=== PATIENT | male | born 1995 | race Caucasian/White ===

== ENCOUNTER 2017-11-18 03:11 | Emergency (ER) | payer OTHER ==
[~2017-11-18 03:11] MED LIST: IBUP-1618 PO
[2017-11-18] MEDS ORDERED: PROPARACAINE 0.5% OP 15ML BTL ONE (03:27)
[2017-11-18] MEDS ORDERED: FLUORESCEIN SOD 1 MG 1 EA STRP OU ONE (03:30)
[2017-11-18] MEDS ORDERED: PROPARACAINE 0.5% OP 15ML BTL OU ONE (03:30)
--- NOTE | 2017-11-18 03:30 | ER Report ---
History and Physical Time Seen By MD: 03:30 Hx. 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 He awoke tonight with eyes burning. Eyes are red. Mild blurred vision. 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 Calving the rest of the day. Nothing in the eyes. No sick contacts. Allergies: Coded Allergies: strawberry (Verified Allergy, Unknown, UNKNOWN, 11/18/17) Penicillins (Verified Adverse Reaction, Severe, EYES SWELLING, 11/18/17) Home Meds No Active Prescriptions or Reported Meds Reviewed Nurses Notes: Yes Hx Smoking: No Hx Substance Use Disorder: No Hx Alcohol Use: No Constitutional Vital Sign - Last 24 Hours 11/18/17 11/18/17 11/18/17 03:16 03:16 04:04 Temp 98.1 98.1 Pulse 70 70 Resp 16 16 16 B/P (MAP) 137/87 137/87 (104) 128/90 (103) Pulse Ox 97 97 96 O2 Delivery Room Air Room Air Room Air Physical Exam General Appearance: Alert, no distress. Used Proparacaine 0.5% drops to numb both eyes. Slit lamp exam: Normal anterior chambers. No foreign body noted. Pupils equal, round and reactive to light. No pallor. No scleral icterus. Both eyes with injection. There is no discharge. Fluorescein exam reveals no uptake. Skin: Periorbital skin is not inflamed. DIFFERENTIAL DIAGNOSIS: After history and physical exam differential diagnosis was considered for bilateral red eyes. suspect that this was from ultraviolet light exposure. Alternatively could be infectious or irritation conjunctivitis. Medical Decision Making ED Course/Re-evaluation ED Course [place] better after numbing. After exam, did start Tobramycin ophthalmic drops. Decision to Disposition Date: Nov 18, 2017 Decision to Disposition Time: 03:52 Depart Departure Latest Vital Signs Vital Signs Date Time Temp Pulse Resp B/P (MAP) Pulse Ox O2 Delivery O2 Flow Rate FiO2 11/18/17 04:04 16 128/90 (103) 96 Room Air 11/18/17 03:16 98.1 70 Impression: Primary Impression: Conjunctivitis Condition: Improved Disposition: HOME OR SELF-CARE Referrals: STEPHON MARRUFO MD (PCP) New Scripts No Active Prescriptions or Reported Meds Patient Instructions: Conjunctivitis (ED) Additional Instructions: Tobramycin ophthalmic drops, 1 drop in each eye every 4 hours while awake. You can use some over the counter lubricating eye drops as needed in between these drops. Anticipate improvement over the next 24-48 hours. If not improving, you will need to follow-up with an technical sales specialist for further evaluation. Problem Qualifiers Primary Impression: Conjunctivitis Conjunctivitis type: acute Acute conjunctivitis type: unspecified Laterality: bilateral Qualified Codes: H10.33 - Unspecified acute conjunctivitis, bilateral [place] CURRY MD Nov 18, 2017 03:30
[2017-11-18] MEDS ORDERED: TOBRAMYCIN 0.3% OP SOLN 5 ML OU ONE (03:55)
[2017-11-18 04:04] VITALS: BP 128/90
== END 2017-11-18 04:02 | disposition home or self-care (01) ==
LOC: ER 03:28
DX: H10.33 Unspecified acute conjunctivitis, bilateral (principal)
CPT/HCPCS: 99282